=== PATIENT | female | born 1995 | race Caucasian/White ===

== ENCOUNTER 2017-06-05 00:02 | Inpatient (IN) | payer BC ==
[~2017-06-05] VITALS: Ht 162.6 cm; Wt 71.0 kg
[2017-06-05] VITALS (12 sets, daily range): BP systolic 103–113; BP diastolic 54–65; PULSE 56–80; TEMP 97.7–98.3
[~2017-06-05 00:02] MED LIST: BACTRIM DS 8001 TAB PO; BIRTH CONTROL PILL; ULTRAM 50MG TAB50 MG PO; ZOFRAN8 MG PO
[2017-06-05] MEDS ORDERED: LIALDA 1.2 GM1.2 GM PO (00:09)
[2017-06-05 00:54] LABS: MEAN CELL VOLUME 64 fl (80.0-95.0); MEAN CORPUSCULAR HGB CONC 28 g/dl (33.0-37.0); MEAN PLATELET VOLUME 9.8 fl (7.4-10.4); PLATELET COUNT 590 K/mm3 (130-400); RED BLOOD COUNT 4.14 M/mm3 (4.10-5.30); WHITE BLOOD COUNT 14.4 K/mm3 (4.8-10.8)
[2017-06-05 00:56] LABS: HEMATOCRIT 26.4 % (35.0-45.0); HEMOGLOBIN 7.4 g/dl (12.0-15.0); MEAN CORPUSCULAR HEMOGLOBIN 18 pg (26.0-32.0)
[2017-06-05 00:57] LABS: ADD PATHOLOGY DIFF REVIEW NO
[2017-06-05 00:59] LABS: ALANINE AMINOTRANSFERASE 31 U/L (9-52); ALBUMIN 4.5 gm/dL (3.5-5.0); ALKALINE PHOSPHATASE 111 U/L (50-136); ANION GAP 12 mmol/L (7-16); BILIRUBIN,TOTAL 0.4 mg/dL (0.0-1.0); BLOOD UREA NITROGEN 10 mg/dL (7-17); CALCIUM 9.4 mg/dL (8.4-10.2); CARBON DIOXIDE 23 mmol/L (22-30); CHLORIDE 107 mmol/L (98-107); CREATININE, serum 0.74 mg/dL (0.52-1.25); GLUCOSE 106 mg/dL (74-106); POTASSIUM 3.8 mmol/L (3.4-5.0); SODIUM 141 mmol/L (137-145); TOTAL PROTEIN 8.2 gm/dL (6.4-8.2)
[2017-06-05 01:05] LABS: C-REACTIVE PROTEIN < 0.5 mg/dL (0.0-0.9)
[2017-06-05 01:06] LABS: ERYTHROCYTE SEDIMENTATION RATE 25 mm/hr (0-20)
[2017-06-05 01:29] LABS: BAND 6 % (0-10); EOSINOPHIL 2 % (0-4); HYPOCHROMIA 4+; LYMPHOCYTE 17 % (20.0-51.0); MICROCYTOSIS 4+; NEUTROPHILS 70 % (42.0-75.2); POLYCHROMASIA 1+; TOTAL CELLS COUNTED 100
[2017-06-05 01:35] LABS: STOMATOCYTE 1+
[2017-06-05 08:19] LABS: ALBUMIN 3.9 gm/dL (3.5-5.0); BILIRUBIN,TOTAL 0.4 mg/dL (0.0-1.0); CALCIUM 8.9 mg/dL (8.4-10.2); CREATININE, serum 0.69 mg/dL (0.52-1.25); TOTAL PROTEIN 7.2 gm/dL (6.4-8.2)
[2017-06-05 08:22] LABS: MEAN CELL VOLUME 65 fl (80.0-95.0); MEAN CORPUSCULAR HGB CONC 27 g/dl (33.0-37.0); MEAN PLATELET VOLUME 9.6 fl (7.4-10.4); PLATELET COUNT 547 K/mm3 (130-400); RED BLOOD COUNT 3.66 M/mm3 (4.10-5.30); RETIC % 1.7 % (0.5-3.52); WHITE BLOOD COUNT 9.1 K/mm3 (4.8-10.8)
[2017-06-05 08:29] LABS: HEMATOCRIT 23.8 % (35.0-45.0); HEMOGLOBIN 6.5 g/dl (12.0-15.0); MEAN CORPUSCULAR HEMOGLOBIN 18 pg (26.0-32.0)
[2017-06-05 08:46] LABS: ADD PATHOLOGY DIFF REVIEW NO
[2017-06-05 08:50] LABS: BAND 11 % (0-10); HYPOCHROMIA 3+; LYMPHOCYTE 7 % (20.0-51.0); MICROCYTOSIS 2+; NEUTROPHILS 82 % (42.0-75.2); OVALOCYTES 1+; SCHISTOCYTES 1+; TEAR DROP CELLS 1+; TOTAL CELLS COUNTED 100
[2017-06-05 08:51] LABS: PLATELET ESTIMATE INCREASED (NORMAL)
[2017-06-05 14:23] LABS: HEMATOCRIT 29.9 % (35.0-45.0); HEMOGLOBIN 8.5 g/dl (12.0-15.0)
[2017-06-05 17:01] LABS: COLLECTION METHOD CLEAN CATCH
[2017-06-05 17:07] LABS: PH 5 (5-8); SQUAMOUS EPITHELIAL None Seen /hpf; URINE APPEARANCE Clear; URINE BACTERIA None Seen /hpf; URINE BILIRUBIN Negative (NEGATIVE); URINE BLOOD Negative (NEGATIVE); URINE COLOR Straw; URINE GLUCOSE Negative (NEGATIVE); URINE KETONE 1+ (NEGATIVE); URINE LEUKOCYTE ESTERASE Negative (NEGATIVE); URINE PROTEIN(semi-quant) Negative (NEGATIVE); URINE RBC 0-2 /hpf; URINE UROBILINOGEN Negative (NEGATIVE); URINE WBC 0-2 /hpf
[2017-06-05 22:27] LABS: HEMATOCRIT 27.6 % (35.0-45.0); HEMOGLOBIN 7.9 g/dl (12.0-15.0)
[2017-06-06 00:51] VITALS: BP 106/65; PULSE 60; TEMP 98
[2017-06-06 05:31] VITALS: BP 105/47; PULSE 52; TEMP 98.4
[2017-06-06 07:18] LABS: BASO % 0.1 % (0.0-2.0); GRAN # 8.6 (1.4-6.5); GRAN % 84.8 % (42.2-75.2); LYMPH # 1.2 (1.2-3.4); MEAN CELL VOLUME 69 fl (80.0-95.0); MEAN CORPUSCULAR HGB CONC 28 g/dl (33.0-37.0); MEAN PLATELET VOLUME 9.9 fl (7.4-10.4); MONO # 0.3 (0.1-0.6); MONO % 2.6 % (1.7-9.3); PLATELET COUNT 527 K/mm3 (130-400); RED BLOOD COUNT 4.06 M/mm3 (4.10-5.30); WHITE BLOOD COUNT 10.1 K/mm3 (4.8-10.8)
[2017-06-06 07:24] LABS: HEMATOCRIT 27.8 % (35.0-45.0); HEMOGLOBIN 7.7 g/dl (12.0-15.0); MEAN CORPUSCULAR HEMOGLOBIN 19 pg (26.0-32.0)
[2017-06-06 07:43] LABS: CALCIUM 9.2 mg/dL (8.4-10.2); CREATININE, serum 0.69 mg/dL (0.52-1.25); POTASSIUM 4.3 mmol/L (3.4-5.0)
[2017-06-06 08:17] VITALS: BP 102/60; PULSE 54; TEMP 97.9
[2017-06-06 11:14] VITALS: BP 108/61; PULSE 62; TEMP 97.5
[2017-06-06 14:17] LABS: HEMATOCRIT 28.7 % (35.0-45.0); HEMOGLOBIN 8.1 g/dl (12.0-15.0)
[2017-06-06 15:38] VITALS: BP 103/59; PULSE 55; TEMP 98
[2017-06-06 20:11] VITALS: BP 111/50; PULSE 81; TEMP 98.2
[2017-06-07 00:04] VITALS: BP 103/60; PULSE 58; TEMP 97.6
[2017-06-07 03:06] VITALS: BP 105/51; PULSE 60; TEMP 98.4
[2017-06-07 06:44] LABS: BASO % 0.2 % (0.0-2.0); GRAN % 83.4 % (42.2-75.2); LYMPH # 1.5 (1.2-3.4); LYMPH % 12.1 % (20.0-51.0); MEAN CELL VOLUME 68 fl (80.0-95.0); MEAN CORPUSCULAR HGB CONC 29 g/dl (33.0-37.0); MEAN PLATELET VOLUME 9.7 fl (7.4-10.4); MONO # 0.5 (0.1-0.6); MONO % 3.8 % (1.7-9.3); PLATELET COUNT 512 K/mm3 (130-400); RED BLOOD COUNT 3.85 M/mm3 (4.10-5.30)
[2017-06-07 06:45] LABS: HEMATOCRIT 26.1 % (35.0-45.0); HEMOGLOBIN 7.6 g/dl (12.0-15.0); MEAN CORPUSCULAR HEMOGLOBIN 20 pg (26.0-32.0)
[2017-06-07 08:02] VITALS: BP 104/56; PULSE 50; TEMP 97.4
[2017-06-07] MEDS ORDERED: FERROUS SU325 MG/TAB PO (08:29)
[2017-06-07] MEDS ORDERED: ZOFRAN 4MG T4 MG/TAB PO (08:29)
[2017-06-07] MEDS ORDERED: PROTONIX 40MG T40 MG PO (08:30)
[2017-06-07] MEDS ORDERED: PREDNISONE10 MG PO (08:38)
[2017-06-07] MEDS ORDERED: LIALDA 1.2 GM1.2 GM PO (08:38)
[2017-06-07 11:02] VITALS: BP 110/66; PULSE 63; TEMP 98.1
== END 2017-06-07 12:29 | disposition home or self-care (01) | DRG 387 ==
LOC: COL.ER 00:02 → MEDICAL 02:18
PROVIDERS: Emergency Medicine; Family Medicine; Internal Medicine; Nurse Practitioner; Physician Assistant
DX: K51.90 Ulcerative colitis, unspecified, without complications (principal); E86.0 Dehydration; D64.9 Anemia, unspecified; D50.0 Iron deficiency anemia secondary to blood loss (chronic); N20.0 Calculus of kidney; Z91.14 Patient's other noncompliance with medication regimen
CPT/HCPCS: 99222-AI; 99231-AI; 99239; J2405; J2930; J7030; J7050; P9016; Q9967

== ENCOUNTER 2017-08-22 19:01 | Emergency (ER) | payer BC ==
[~2017-08-22] VITALS: Ht 162.6 cm; Wt 63.6 kg
[~2017-08-22 19:01] MED LIST changes: +FERROUS SU325 MG/TAB PO; +LIALDA 1.2 GM1.2 GM PO; +PREDNISONE10 MG PO; +PROTONIX 40MG T40 MG PO; +ZOFRAN 4MG T4 MG/TAB PO
[2017-08-22 19:16] VITALS: BP 134/66; PULSE 72; TEMP 98
[2017-08-22 19:51] LABS: COLLECTION METHOD CLEAN CATCH
[2017-08-22 19:58] LABS: PH 5 (5-8); URINE APPEARANCE Clear; URINE BILIRUBIN Negative (NEGATIVE); URINE BLOOD 2+ (NEGATIVE); URINE COLOR Yellow; URINE GLUCOSE Negative (NEGATIVE); URINE KETONE Negative (NEGATIVE); URINE LEUKOCYTE ESTERASE Negative (NEGATIVE); URINE NITRATE Negative (NEGATIVE); URINE PROTEIN(semi-quant) Negative (NEGATIVE); URINE UROBILINOGEN Negative (NEGATIVE)
[2017-08-22 20:03] LABS: BASO # 0.1 (0.0-0.2); BASO % 0.8 % (0.0-2.0); EOS # 0.1 (0.0-0.7); EOS % 0.7 % (0-4.0); GRAN # 6.8 (1.4-6.5); GRAN % 69.2 % (42.2-75.2); HEMATOCRIT 37.8 % (35.0-45.0); HEMOGLOBIN 11.2 g/dl (12.0-15.0); LYMPH # 2.3 (1.2-3.4); LYMPH % 23.2 % (20.0-51.0); MEAN CELL VOLUME 75 fl (80.0-95.0); MEAN CORPUSCULAR HEMOGLOBIN 22 pg (26.0-32.0); MEAN CORPUSCULAR HGB CONC 30 g/dl (33.0-37.0); MEAN PLATELET VOLUME 9.5 fl (7.4-10.4); MONO # 0.6 (0.1-0.6); MONO % 5.7 % (1.7-9.3); PLATELET COUNT 504 K/mm3 (130-400); RED BLOOD COUNT 5.02 M/mm3 (4.10-5.30); REDCELL DISTRIBUTION WIDTH-CV 17.2 % (11.5-14.5)
[2017-08-22 20:03] LABS: TRICYCLIC ANTIDEPRESS URINE NEGATIVE
[2017-08-22 20:10] LABS: ALANINE AMINOTRANSFERASE 28 U/L (9-52); ALBUMIN 4.8 gm/dL (3.5-5.0); ALKALINE PHOSPHATASE 104 U/L (50-136); ANION GAP 10 mmol/L (7-16); AST,SGOT 19 U/L (15-37); BILIRUBIN,TOTAL 0.2 mg/dL (0.0-1.0); BLOOD UREA NITROGEN 9 mg/dL (7-17); CALCIUM 9.3 mg/dL (8.4-10.2); CARBON DIOXIDE 25 mmol/L (22-30); CHLORIDE 104 mmol/L (98-107); CREATININE, serum 0.73 mg/dL (0.52-1.25); GLUCOSE 93 mg/dL (74-106); SODIUM 139 mmol/L (137-145); TOTAL PROTEIN 8.2 gm/dL (6.4-8.2)
[2017-08-22 20:11] LABS: ACETAMINOPHEN < 10 ug/mL (10-30); ALCOHOL(ethanol),MEDICAL < 10 mg/dL; SALICYLATE < 1.0 mg/dL
== END 2017-08-22 21:42 | disposition home or self-care (01) ==
LOC: COL.ER 19:01
PROVIDERS: Nurse Practitioner
DX: F32.9 Major depressive disorder, single episode, unspecified (principal); R45.851 Suicidal ideations; K51.90 Ulcerative colitis, unspecified, without complications

== ENCOUNTER 2018-04-11 06:38 | Emergency (ER) | payer BC ==
[~2018-04-11] VITALS: Ht 162.6 cm; Wt 68.2 kg
[2018-04-11 06:44] VITALS: TEMP 98.5
[2018-04-11] MEDS ORDERED: [UNRECOGNIZED DRUG - OTHER] PO (07:06)
[2018-04-11 07:15] LABS: BASO # 0.1 (0.0-0.2); BASO % 0.6 % (0.0-2.0); EOS # 0.1 (0.0-0.7); EOS % 0.6 % (0-4.0); GRAN # 7.4 (1.4-6.5); GRAN % 65.2 % (42.2-75.2); HEMATOCRIT 37.2 % (37.0-47.0); LYMPH # 3.1 (1.2-3.4); LYMPH % 27.6 % (20.0-51.0); MEAN CELL VOLUME 81 fl (80.0-100.0); MEAN CORPUSCULAR HEMOGLOBIN 26 pg (27.0-31.0); MEAN CORPUSCULAR HGB CONC 32 g/dl (33.0-37.0); MEAN PLATELET VOLUME 9.7 fl (7.4-10.4); MONO # 0.6 (0.1-0.6); MONO % 5.6 % (1.7-9.3); PLATELET COUNT 377 K/mm3 (130-400); RED BLOOD COUNT 4.61 M/mm3 (4.10-5.30); REDCELL DISTRIBUTION WIDTH-CV 14.1 % (11.5-14.5)
[2018-04-11 07:28] LABS: ALBUMIN 3.9 gm/dL (3.5-5.0); BILIRUBIN,TOTAL 0.1 mg/dL (0.0-1.0); CALCIUM 8.9 mg/dL (8.4-10.2); CREATININE, serum 0.68 mg/dL (0.52-1.25); POTASSIUM 3.8 mmol/L (3.4-5.0); TOTAL PROTEIN 7.4 gm/dL (6.4-8.2)
[2018-04-11 07:49] LABS: COLLECTION METHOD CLEAN CATCH
[2018-04-11 07:58] LABS: MUCOUS Present /lpf; PH 5 (5-8); SQUAMOUS EPITHELIAL 0-2 /hpf; URINE APPEARANCE Hazy; URINE BACTERIA None Seen /hpf; URINE BILIRUBIN Negative (NEGATIVE); URINE BLOOD 3+ (NEGATIVE); URINE COLOR Yellow; URINE GLUCOSE Negative (NEGATIVE); URINE KETONE Trace (NEGATIVE); URINE LEUKOCYTE ESTERASE Negative (NEGATIVE); URINE NITRATE Negative (NEGATIVE); URINE PROTEIN(semi-quant) 1+ (NEGATIVE); URINE RBC >50 /hpf; URINE UROBILINOGEN Negative (NEGATIVE)
[2018-04-11] MEDS ORDERED: PERCOCET 325 MG1 TA2 PO (08:10)
[2018-04-11] MEDS ORDERED: FLOMAX 0.40.4 MG/CAP PO (08:10)
[2018-04-11] MEDS ORDERED: ZOFRAN ODT4 MG PO (08:10)
[2018-04-11 09:27] VITALS: BP 111/75; PULSE 80
== END 2018-04-11 09:28 | disposition home or self-care (01) ==
LOC: COL.ER 06:38
PROVIDERS: Physician Assistant
DX: N20.0 Calculus of kidney (principal); Z87.442 Personal history of urinary calculi
CPT/HCPCS: J1170; J1885; J2405; J7030